=== PATIENT | male | born 1980 | race Hispanic/Latino ===

== ENCOUNTER 2021-01-05 09:07 | Emergency (ER) | payer OTHER ==
[~2021-01-05] VITALS: Ht 180.3 cm; Wt 109.1 kg
[2021-01-05] MEDS ORDERED: ZOLO100T PO (09:16)
[2021-01-05] MEDS ORDERED: MODA100T13 PO (09:16)
[2021-01-05] MEDS ORDERED: CYCL-707 PO (09:16)
[2021-01-05] MEDS ORDERED: NEUR300C PO (09:16)
[2021-01-05] MEDS ORDERED: LUNE2TAB23 PO (09:16)
[2021-01-05] MEDS ORDERED: LIDOCAINE 5% (LIDODERM) PATCH TD ONE (10:20)
[2021-01-05] MEDS ORDERED: CYCLOBENZAPRINE 10MG TABLET PO ONE (10:20)
[2021-01-05] MEDS ORDERED: methylPREDNISolone 125MG 2ML VIAL IV ONE (10:20)
[2021-01-05] MEDS ORDERED: ACETAMINOPHEN 500 MG TAB PO ONE (10:20)
--- NOTE | 2021-01-05 10:46 | REP ---
INDICATION: cough COMPARISON: None. TECHNIQUE: PA and lateral. FINDINGS: The mediastinum and cardiac silhouette are normal. The lung cuellar are clear and without acute consolidation, effusion, or pneumothorax. The skeletal structures are intact and normal. IMPRESSION: No acute cardiopulmonary process. <Electronically signed by Rakesh Yeh > 01/05/21 1041
--- NOTE | 2021-01-05 10:48 | REP ---
INDICATION: acute on chronic diffuse low back pain radiating to RLE. COMPARISON: None. TECHNIQUE: Axial noncontrast images of the lumbosacral spine from mid T12 through mid sacrum with coronal and sagittal reformations. This CT examination was performed using the following dose reduction techniques: Automated exposure control, adjustment of mA and/or kv according to the patient's size, and use of iterative reconstruction technique. FINDINGS: Alignment and lordosis maintained. Vertebral bodies are intact. Posterior elements and spinous processes are intact. There is no evidence for acute fracture/compression injury or subluxation. The spinal canal is patent. The paravertebral soft tissues are normal. No obvious significant disc bulges are identified by noncontrast CT. IMPRESSION: Essentially normal age-appropriate lumbosacral spine CT. No evidence for acute fracture/compression injury or subluxation. <Electronically signed by Rakesh Yeh > 01/05/21 1048
[2021-01-05 12:44] LABS: APPEARANCE, URINE CLEAR (CLEAR); BACTERIA, URINE AUTO NEGATIVE (NEGATIVE); BILIRUBIN, URINE AUTO NEGATIVE (NEGATIVE); BLOOD, URINE BLOOD NEGATIVE (NEGATIVE); COLOR, URINE YELLOW (YELLOW); GLUCOSE, URINE (UA) AUTO NEGATIVE (NEGATIVE); KETONE, URINE AUTO NEGATIVE (NEGATIVE); LEUKOCYTE ESTERASE, URINE AUTO NEGATIVE (NEGATIVE); MUCUS, URINE SMALL (NEGATIVE); NITRITE, URINE AUTO NEGATIVE (NEGATIVE); PROTEIN, URINE AUTO NEGATIVE (NEGATIVE); RBC, URINE AUTO 2 /HPF (0-3); SPECIFIC GRAVITY URINE AUTO 1.031 (1.002-1.035); SQUAMOUS EPITHELIAL CELL UR AU 0 /HPF (0-6); UROBILINOGEN, URINE AUTO 0.2 mg/dL (0.0-2.0); WBC, URINE AUTO 0 /HPF (0-3)
[2021-01-05] MEDS ORDERED: KETOROLAC 30 MG/ML 1ML VIAL IV ONE (13:20)
[2021-01-05] MEDS ORDERED: MORPHINE 4 MG/ML 1ML VIAL/SYRINGE (J2270) IV ONE ×2 (13:20→14:30)
[2021-01-05] MEDS ORDERED: BACL10TA2 PO (15:20)
[2021-01-05] MEDS ORDERED: LIDO5DIS41 TOP (15:20)
[2021-01-05 15:50] VITALS: BP 125/63
[2021-01-05] MEDS ORDERED: **NOTE PATIENT COMMENT** MISC XX SCH (21:00)
== END 2021-01-05 15:54 | disposition home or self-care (01) ==
LOC: M ED 09:07
DX: S39.012A Strain of muscle, fascia and tendon of lower back, initial encounter (principal); M54.16 Radiculopathy, lumbar region; B34.1 Enterovirus infection, unspecified; B34.8 Other viral infections of unspecified site; J06.9 Acute upper respiratory infection, unspecified; I10 Essential (primary) hypertension; R51.9 Headache, unspecified; K21.9 Gastro-esophageal reflux disease without esophagitis; F32.9 Major depressive disorder, single episode, unspecified
CPT/HCPCS: 71046; 72131; 80047; 81001; 87798; 87880; 96374; 96375; 96376; 99284; J1885; J2270; J2930

== ENCOUNTER → 2021-06-15 | Outpatient (REF) ==
[~2021-06-15] MED LIST: BACL10TA2 PO; CYCL-707 PO; LIDO5DIS41 TOP; LUNE2TAB23 PO; MODA100T13 PO; NEUR300C PO; ZOLO100T PO
== END ==
LOC: M PLAIMG 11:54
PROVIDERS: ATTEND Internal Medicine
DX: M50.321 Other cervical disc degeneration at C4-C5 level (principal); M50.322 Other cervical disc degeneration at C5-C6 level; R91.8 Other nonspecific abnormal finding of lung field; M17.12 Unilateral primary osteoarthritis, left knee; M16.0 Bilateral primary osteoarthritis of hip; M19.042 Primary osteoarthritis, left hand; M19.071 Primary osteoarthritis, right ankle and foot; M19.072 Primary osteoarthritis, left ankle and foot

== ENCOUNTER → 2022-09-04 | Outpatient (CLI) | payer OTHER ==
[~2022-09-04] MED LIST changes: +ISOVUE-300 61% 100ML VIAL As Ordered ONE; +LIDOCAINE 1% MDV 20ML VIAL As Ordered ONE; +PROHANCE 279.3MG/ML 5ML VIAL As Ordered ONE
== END ==
LOC: M RAD 06:55
PROVIDERS: ATTEND Orthopaedic Surgery
DX: M75.22 Bicipital tendinitis, left shoulder (principal); M25.511 Pain in right shoulder
CPT/HCPCS: 23350; 73223; 77002; A9576; Q9967

== ENCOUNTER → 2022-09-18 | Outpatient (CLI) | payer OTHER ==
[~2022-09-18] MED LIST changes: -ISOVUE-300 61% 100ML VIAL As Ordered ONE; -LIDOCAINE 1% MDV 20ML VIAL As Ordered ONE; -PROHANCE 279.3MG/ML 5ML VIAL As Ordered ONE
== END ==
LOC: M SOG 09:30
PROVIDERS: ATTEND Orthopaedic Surgery
DX: M25.512 Pain in left shoulder (principal); M25.511 Pain in right shoulder

== ENCOUNTER 2022-12-03 20:30 | Inpatient (IN) | payer OTHER ==
[~2022-12-03] VITALS: Ht 180.3 cm; Wt 106.0 kg
[2022-12-03] MEDS ORDERED: FLUT1BLS2 INH (23:01)
[2022-12-03] MEDS ORDERED: TEST200I14 IM (23:01)
[2022-12-03] MEDS ORDERED: LIDO5TD TOP (23:01)
[2022-12-03] MEDS ORDERED: ALBU8.5H INH (23:01)
[2022-12-03] MEDS ORDERED: CELE1CAP4 PO (23:01)
[2022-12-03] MEDS ORDERED: TIZA10TA PO (23:01)
[2022-12-03] MEDS ORDERED: CICL6.6S EXT (23:01)
[2022-12-03] MEDS ORDERED: ANAS1TAB2 PO (23:01)
[2022-12-03] MEDS ORDERED: TERB1CRE2 TOP (23:01)
[2022-12-03] MEDS ORDERED: ESZO1TAB4 PO (23:01)
[2022-12-03] MEDS ORDERED: DICL1GEL3 TOP (23:01)
[2022-12-03] MEDS ORDERED: VENL150C43 PO (23:01)
[2022-12-03] MEDS ORDERED: SILD100T PO (23:01)
[2022-12-03] MEDS ORDERED: GABA600T4 PO (23:01)
[2022-12-03] MEDS ORDERED: AMMO12CR7 TOP (23:01)
[2022-12-03] MEDS ORDERED: OMEG10002 PO (23:01)
[2022-12-03] MEDS ORDERED: TUMS500C PO (23:01)
[2022-12-03 23:11] LABS: HEMATOCRIT 51.7 % (42.0-52.0); HEMOGLOBIN 17.3 g/dl (13.5-17.5); MEAN CORPUSCULAR HEMOGLOBIN 29.3 pg (27.0-33.0); MEAN CORPUSCULAR HGB CONC 33.5 g/dl (32.0-36.5); MEAN CORPUSCULAR VOLUME 87.6 fl (80.0-96.0); PLATELET COUNT, AUTOMATED 264 10^3/uL (150-450); WHITE BLOOD COUNT 13.5 10^3/uL (4.0-10.0)
[2022-12-03 23:33] LABS: AMPHETAMINES LEVEL URINE NEGATIVE (NEGATIVE)
[2022-12-03 23:34] LABS: BARBITURATES URINE NEGATIVE (NEGATIVE); BENZODIAZEPINES URINE NEGATIVE (NEGATIVE); CANNABINOIDS URINE NEGATIVE (NEGATIVE); COCAINE METABOLITE URINE NEGATIVE (NEGATIVE); METHADONE URINE NEGATIVE (NEGATIVE); OPIATES URINE NEGATIVE (NEGATIVE); PHENCYCLIDINE URINE NEGATIVE (NEGATIVE)
[2022-12-03 23:36] LABS: ETHYL ALCOHOL (ETHANOL) < 0.003 % (0.000-0.010)
[2022-12-03 23:37] LABS: ACETAMINOPHEN LEVEL < 2.0 UG/ML (10.0-20.0)
[2022-12-03 23:38] LABS: ALKALINE PHOSPHATASE 81 U/L (46-116); ALT/SGPT 33 U/L (7.0-40); AST/SGOT 23 U/L (<34); BILIRUBIN,DIRECT 0.1 MG/DL (<0.4); BILIRUBIN,TOTAL 0.5 MG/DL (0.3-1.2); BLOOD UREA NITROGEN 16 MG/DL (9-23); CALCIUM LEVEL 9.8 MG/DL (8.5-10.1); CARBON DIOXIDE LEVEL 26 MMOL/L (20-31); CHLORIDE LEVEL 105 MMOL/L (98-107); CREATININE FOR GFR 1.17 MG/DL (0.70-1.30); GLOMERULAR FILTRATION RATE > 60.0 (>60); GLUCOSE, FASTING 99 MG/DL (60-100); POTASSIUM SERUM 4.1 MMOL/L (3.5-5.1); SALICYLATE LEVEL < 3.0 MG/DL (<30); SODIUM LEVEL 138 MMOL/L (136-145); TOTAL PROTEIN 7.2 G/DL (5.7-8.2)
[2022-12-03 23:40] LABS: THYROID STIMULATING HORMONE 3.254 uIU/ML (0.55-4.78)
[2022-12-03] MEDS ORDERED: LORazepam 1 MG TAB PO ONE (23:55)
[2022-12-04] MEDS ORDERED: HOME MED LIST COMPLETE! XX SCH (00:05)
[2022-12-04] MEDS ORDERED: CelecoXIB (CeleBREX) 100 MG CAP PO PRN (00:45)
[2022-12-04] MEDS ORDERED: ALBUTEROL 90 MCG/ACT 8GM HFA INHALER INH PRN (00:45)
[2022-12-04] MEDS ORDERED: NICOTINE 21MG/24HR 1 EA TRANSDERMAL TD PRN (00:45)
[2022-12-04] MEDS ORDERED: traZODone 50 MG TAB PO PRN (00:45)
[2022-12-04] MEDS ORDERED: OLANZapine ORAL DISINTEGRATING TAB 5MG PO PRN (00:45)
[2022-12-04] MEDS ORDERED: MOM 30ML SUSPENSION UDC PO PRN (00:45)
[2022-12-04] MEDS ORDERED: LACTIC ACID 12% LOTION 225 GM BTL TOP PRN (00:45)
[2022-12-04] MEDS ORDERED: LIDOCAINE 5% (LIDODERM) PATCH TOP PRN (00:45)
[2022-12-04] MEDS ORDERED: CALCIUM CARBONATE 500 MG CHEW U/D PO PRN (00:45)
[2022-12-04] MEDS ORDERED: diphenhydrAMINE 25MG CAP PO PRN (00:45)
[2022-12-04] MEDS ORDERED: MAALOX 30 ML SUSP *UDC PO PRN (00:45)
[2022-12-04] MEDS ORDERED: ACETAMINOPHEN TAB 650MG DOSE (2X325MG) PO PRN (00:45)
[2022-12-04] MEDS ORDERED: tiZANidine 4 MG TAB PO PRN (00:45)
[2022-12-04 03:00] VITALS: BP 134/80; TEMP 98.1; O2SAT 98
[2022-12-04 06:53] VITALS: BP 126/56; TEMP 97.2; O2SAT 100
[2022-12-04] MEDS ORDERED: ADVAIR HFA 115/21MCG INHALER INH SCH (08:00)
[2022-12-04] MEDS ORDERED: VENLAFAXINE **XR** 75MG CAPSULE PO SCH (09:00)
[2022-12-04] MEDS ORDERED: OMEGA-3 1000MG CAPSULE PO SCH (09:00)
[2022-12-04] MEDS: GABAPENTIN 300 MG CAP PO SCH ×2 (09:23→12:53)
== END 2022-12-04 12:36 | disposition home or self-care (01) | DRG 882 ==
LOC: M ED 20:30 → M ED INP 12-04 00:43 → M PSY 12-04 01:29
PROVIDERS: ADMIT Psychiatry & Neurology Psychiatry; ATTEND Psychiatry & Neurology Psychiatry
DX: F43.10 Post-traumatic stress disorder, unspecified (principal); R45.851 Suicidal ideations; F41.9 Anxiety disorder, unspecified; F32.A Depression, unspecified; Z79.899 Other long term (current) drug therapy; G89.29 Other chronic pain